=== PATIENT | female | born 1980 | race Caucasian/White ===

== ENCOUNTER 2019-11-30 18:10 | Emergency (ER) | payer OTHER ==
[~2019-11-30] VITALS: Ht 167.6 cm; Wt 140.9 kg
[~2019-11-30 18:10] MED LIST: CHOL200018 PO
[2019-11-30] MEDS ORDERED: MOM30 PO (18:23)
[2019-11-30] MEDS ORDERED: SIME62.5 PO (18:23)
[2019-11-30] MEDS ORDERED: LACT30L PO (18:23)
[2019-11-30] MEDS ORDERED: FAMO20 PO (18:24)
[2019-11-30] MEDS ORDERED: SODIUM PHOS/SODIUM BIPHOS 133 ML ENEMA PR ONE (19:30)
[2019-11-30] MEDS ORDERED: BARIUM SULFATE 0.1% SUSPENSION 450 ML BOTTLE PO ONE (21:00)
[2019-11-30] MEDS ORDERED: MINERAL OIL 133 ML ENEMA PR ONE (21:00)
[2019-11-30] MEDS ORDERED: SODIUM CHLORIDE 0.9% 100 ML ONE (21:13)
[2019-11-30] MEDS ORDERED: IOVERSOL 350 MG/ML 100 ML VIAL ONE (21:13)
[2019-11-30 22:29] LABS: BASOPHILS % (AUTO) 0.3 % (0.0-2.0); EOSINOPHILS % (AUTO) 0.5 % (1.0-6.0); HEMATOCRIT 47.3 % (36-46); HEMOGLOBIN 14.8 g/dL (12.0-16.0); LYMPHOCYTES # (AUTO) 1.4 K/uL (1.0-4.8); LYMPHOCYTES % (AUTO) 16.1 % (22.0-44.0); MEAN CORPUSCULAR HEMOGLOBIN 26.8 pg (26.0-34.0); MEAN CORPUSCULAR HGB CONC 31.3 G/dL (31.0-37.0); MEAN CORPUSCULAR VOLUME 86 fL (80-100); MONOCYTES # (AUTO) 0.5 K/uL (0.1-1.0); MONOCYTES % (AUTO) 5.4 % (2.0-9.0); NEUTROPHILS # (AUTO) 6.9 K/uL (1.8-7.7); NEUTROPHILS % (AUTO) 77.7 % (40.0-70.0); PLATELET COUNT (AUTO) 195 K/uL (150-450); RED BLOOD CELL COUNT(AUTO) 5.53 MIL/uL (4.00-5.20); RED CELL DISTRIBUTION WIDTH 15.6 % (11.5-14.5)
[2019-11-30 22:42] LABS: ANION GAP 14 mmol/L (8-16); CALCIUM, TOTAL 9.5 mg/dL (8.8-10.5); CARBON DIOXIDE 26 mmol/L (22-29); CHLORIDE 99 mmol/L (98-107); CREATININE 0.88 mg/dL (0.60-1.30); GLOMERULAR FILTR. RATE CALC > 60 mL/min (>60); GLUCOSE,RANDOM 117 mg/dL (70-110); POTASSIUM 3.4 mmol/L (3.5-5.1); SODIUM SERUM 139 mmol/L (136-145); UREA NITROGEN, BLOOD 11 mg/dL (7-18)
[2019-11-30 22:52] LABS: ALANINE AMINOTRANSFERASE 41 U/L (12-78); ALBUMIN 4.4 g/dL (3.4-5.0); ALKALINE PHOSPHATASE 92 U/L (46-116); ASPARTATE AMINOTRANSFERASE 36 U/L (15-37); HCG,QUANTITATIVE < 1 mIU/mL (0-6); LIPASE 148 U/L (73-393); TOTAL PROTEIN, SERUM 9.3 g/dL (6.4-8.2)
[2019-12-01] MEDS ORDERED: PRAMOXINE/HYDROCORTISONE 10 GM FOAM PR ONE (03:00)
[2019-12-01] MEDS ORDERED: POLYETHYLENE GLYCOL 3350 17 GM PACKET PO ONE (03:00)
[2019-12-01 03:16] VITALS: BP 129/78
== END 2019-12-01 04:43 | disposition home or self-care (01) ==
LOC: EMS 18:13
DX: K59.00 Constipation, unspecified (principal); E27.9 Disorder of adrenal gland, unspecified; K52.89 Other specified noninfective gastroenteritis and colitis; F41.9 Anxiety disorder, unspecified; F32.9 Major depressive disorder, single episode, unspecified; F12.90 Cannabis use, unspecified, uncomplicated; Z90.89 Acquired absence of other organs; Z87.891 Personal history of nicotine dependence
CPT/HCPCS: 36415; 74177; 80053; 83690; 84702; 85025; 99285; J7050; Q9967

== ENCOUNTER 2020-03-31 04:45 | Emergency (ER) | payer OTHER ==
[~2020-03-31] VITALS: Ht 170.2 cm; Wt 118.2 kg
[~2020-03-31 04:45] MED LIST changes: +FAMO20 PO; +LACT30L PO; +MOM30 PO; +SIME62.5 PO
[2020-03-31 05:05] VITALS: BP 153/84
== END 2020-03-31 06:14 | disposition home or self-care (01) ==
LOC: EMS 04:46
DX: B37.3 Candidiasis of vulva and vagina (principal); F41.9 Anxiety disorder, unspecified; F32.9 Major depressive disorder, single episode, unspecified; Z90.89 Acquired absence of other organs
CPT/HCPCS: 81002-TC; Z7502

== ENCOUNTER 2020-07-25 20:32 | Emergency (ER) | payer OTHER ==
[~2020-07-25] VITALS: Ht 167.6 cm; Wt 110.0 kg
[2020-07-25] MEDS ORDERED: ACETAMINOPHEN 500 MG TABLET PO ONE (23:00)
[2020-07-26 00:24] VITALS: BP 132/80
== END 2020-07-26 00:26 | disposition home or self-care (01) ==
LOC: EMS 20:32
DX: M79.661 Pain in right lower leg (principal); F41.9 Anxiety disorder, unspecified; F32.9 Major depressive disorder, single episode, unspecified
CPT/HCPCS: 93971; 99284; 84703-TC; Z7502; Z7610

== ENCOUNTER 2022-08-18 19:12 | Emergency (ER) | payer OTHER ==
[~2022-08-18] VITALS: Ht 170.2 cm; Wt 104.1 kg
[~2022-08-18 19:12] MED LIST changes: +LACT10SO10 PO; -LACT30L PO; +MAGN-169 PO; -MOM30 PO
[2022-08-18 21:42] LABS: BASOPHILS % (AUTO) 0.7 % (0.0-2.0); EOSINOPHILS % (AUTO) 0.6 % (1.0-6.0); HEMATOCRIT 37.7 % (36-46); HEMOGLOBIN 11.9 g/dL (12.0-16.0); LYMPHOCYTES # (AUTO) 1.6 K/uL (1.0-4.8); LYMPHOCYTES % (AUTO) 26.5 % (22.0-44.0); MEAN CORPUSCULAR HEMOGLOBIN 27.3 pg (26.0-34.0); MEAN CORPUSCULAR HGB CONC 31.5 G/dL (31.0-37.0); MEAN CORPUSCULAR VOLUME 87 fL (80-100); MONOCYTES # (AUTO) 0.5 K/uL (0.1-1.0); MONOCYTES % (AUTO) 7.9 % (2.0-9.0); NEUTROPHILS # (AUTO) 3.9 K/uL (1.8-7.7); NEUTROPHILS % (AUTO) 64.3 % (40.0-70.0); PLATELET COUNT (AUTO) 199 K/uL (150-450); RED BLOOD CELL COUNT(AUTO) 4.35 MIL/uL (4.00-5.20); RED CELL DISTRIBUTION WIDTH 14.4 % (11.5-14.5)
[2022-08-18 21:49] LABS: ANION GAP 7 mmol/L (8-16); CALCIUM, TOTAL 8.9 mg/dL (8.8-10.5); CARBON DIOXIDE 27 mmol/L (22-29); CHLORIDE 106 mmol/L (98-107); CREATININE 0.54 mg/dL (0.60-1.30); GLOMERULAR FILTR. RATE CALC > 60 mL/min (>60); GLUCOSE,RANDOM 105 mg/dL (70-110); POTASSIUM 4.2 mmol/L (3.5-5.1); SODIUM SERUM 140 mmol/L (136-145); UREA NITROGEN, BLOOD 10 mg/dL (7-18)
[2022-08-18 21:56] LABS: ALANINE AMINOTRANSFERASE 18 U/L (12-78); ALBUMIN 3.8 g/dL (3.4-5.0); ALKALINE PHOSPHATASE 84 U/L (46-116); ASPARTATE AMINOTRANSFERASE 25 U/L (15-37); BILIRUBIN,TOTAL 0.7 mg/dL (0.1-1.0); LIPASE 100 U/L (73-393); TOTAL PROTEIN, SERUM 7.1 g/dL (6.4-8.2)
[2022-08-18] MEDS ORDERED: LORazepam 0.5 MG TABLET PO ONE (22:30)
[2022-08-18] MEDS ORDERED: LORazepam 1 MG TABLET PO ONE (22:30)
[2022-08-18] MEDS ORDERED: IBUPROFEN 600 MG TABLET PO ONE (23:00)
[2022-08-18 23:23] VITALS: BP 133/71
[2022-08-19] MEDS ORDERED: IBUP-1492 PO (00:11)
[2022-08-19 00:27] LABS: COVID AG,FIA SOURCE NASOPHARYNGEAL
[2022-08-19 00:46] LABS: INFLUENZA TYPE A NEGATIVE FOR TYPE A (NEGATIVE); INFLUENZA TYPE B NEGATIVE FOR TYPE B (NEGATIVE)
== END 2022-08-19 00:47 | disposition home or self-care (01) ==
LOC: EMS 19:13
DX: R07.9 Chest pain, unspecified (principal); F41.9 Anxiety disorder, unspecified; F32.A Depression, unspecified; K80.20 Calculus of gallbladder without cholecystitis without obstruction; Z90.49 Acquired absence of other specified parts of digestive tract; Z20.822 Contact with and (suspected) exposure to COVID-19; Z98.890 Other specified postprocedural states
CPT/HCPCS: 71045; 80053; 83690; 84484; 84703; 85025; 85379; 87804; 93005; 99285; 36415-L1; 36415-TC